=== PATIENT | male | born 1980 | race Caucasian/White ===

== ENCOUNTER 2017-10-02 02:41 | Emergency (ER) | payer OTHER ==
[2017-10-02] MEDS: LIDOCAINE 1% PF 30 ML VIAL. INJ (03:12)
[2017-10-02] MEDS ORDERED: DIPHTH,PERTUSS(ACELL),TET TOX 0.5 ML DISP.SYRIN. VAX IM (03:13)
[2017-10-02] MEDS: NEOMY/BACITR/POLYMYXIN OINT PACKET. TP (03:37)
[2017-10-02] MEDS: DIPHTH,PERTUSS(ACELL),TET TOX 0.5 ML DISP.SYRIN. VAX IM (03:38)
[2017-10-02] MEDS ORDERED: NEOMY/BACITR/POLYMYXIN OINT PACKET. TP (03:45)
[2017-10-02] MEDS ORDERED: TETANUS AND DIPHTHERIA TOX/PF 0.5 ML DISP.SYRIN. VAX IM (03:45)
== END 2017-10-02 03:56 | disposition home or self-care (01) ==
LOC: ER 02:41
DX: S61.412A Laceration without foreign body of left hand, initial encounter (principal); F10.10 Alcohol abuse, uncomplicated; F17.200 Nicotine dependence, unspecified, uncomplicated; W20.8XXA Other cause of strike by thrown, projected or falling object, initial encounter; Y93.89 Activity, other specified; Y92.89 Other specified places as the place of occurrence of the external cause; Y99.8 Other external cause status
CPT/HCPCS: 12001; 12002; 90471; 90715; 99283